=== PATIENT | female | born 2000 | race African-American/Black ===

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

== ENCOUNTER 2021-02-17 08:16 | Emergency (ER) | payer OTHER ==
[2021-02-18 02:26] LABS: SARS-CoV-2 PCR by NAA Not Detected (NotDetected)
== END 2021-02-17 09:10 | disposition home or self-care (01) ==
LOC: NAV ERS 08:16
DX: Z20.822 Contact with and (suspected) exposure to COVID-19 (principal)
CPT/HCPCS: 99283; U0003; U0005

== ENCOUNTER 2021-06-04 16:14 | Emergency (ER) | payer OTHER ==
[2021-06-04] MEDS ORDERED: Lidocaine Viscous Sol 2% 15 ml UD Cup ONE (16:42)
[2021-06-04] MEDS ORDERED: Acetaminophen 500 MG TAB ONE (16:42)
[2021-06-04] MEDS ORDERED: Mag-Al Plus 1200 MG/1200 MG/120 MG/30 ML UDCUP ONE (16:42)
== END 2021-06-04 17:22 | disposition home or self-care (01) ==
LOC: NAV ERS 16:14
DX: O99.891 Other specified diseases and conditions complicating pregnancy (principal); R07.9 Chest pain, unspecified; Z3A.18 18 weeks gestation of pregnancy
CPT/HCPCS: 71046; 93005

== ENCOUNTER 2021-06-14 10:14 | Emergency (ER) | payer OTHER | END 2021-06-14 11:16 | disposition home or self-care (01) | LOC: NAV ERS 10:14 | DX: O99.612 Diseases of the digestive system complicating pregnancy, second trimester (principal); K59.00 Constipation, unspecified; Z3A.19 19 weeks gestation of pregnancy | CPT/HCPCS: 99283 ==